=== PATIENT | male | born 1965 | race Caucasian/White ===

== ENCOUNTER 2019-02-18 06:28 | Day surgery (SDC) | payer OTHER ==
[2019-02-17 13:18] LABS: Protime INR 1.63
--- NOTE | 2019-02-17 13:20 | RAD REPORT ---
EXAM DESCRIPTION: RAD - Chest Pa And Lat (2 Views) - 02/17/2019 1:13 pm CLINICAL HISTORY: cardioversion Chest pain. COMPARISON: RAD CHEST PA AND LAT (2 VIEWS) dated 11/05/2013 FINDINGS: Linear subsegmental atelectasis is present in the left mid lung. Blunting of the costophre aram angle on the left is seen probably pleural thickening. Pulmonary arterial tree appears prominent in size suggesting underlying pulmonary arterial hypertension. The heart is mildly enlarged. Sternoto my wires present. A stent projects over the upper mediastinum on the left. No displaced fractures. IMPRESSION: Linear atelectasis left mid lung. Enlarged pulmonary arterial tree may indicate pulmonary arterial hypertension. The heart is mildly enlarged.
[2019-02-17 13:23] LABS: Potassium 3.8 mmol/L (3.5-5.1)
[2019-02-17 13:42] LABS: Absolute Lymphocytes (CBC) 1.5 K/uL (0.7-4.9); Basophils % 0.7 % (0-1.3); Hematocrit 40.3 % (39.6-49.0); Lymphocytes % 15.2 % (15.3-44.8); MPV 8.5 fL (7.6-11.3); RBC Red Blood Cell Count 4.38 M/uL (4.33-5.43)
[2019-02-18] MEDS ORDERED: NA CHLORIDE 0.9% 500 ML ONE (06:38)
[2019-02-18] MEDS ORDERED: ATROPINE SULF 1 MG/10 ML SYR IV ONE (07:17)
[2019-02-18] MEDS ORDERED: FLUMAZENIL 0.1 MG/ML (5 mL VIAL) IV ONE (07:17)
[2019-02-18] MEDS ORDERED: MIDAZOLAM HCL 5 MG/5 ML INJ ONE (07:17)
[2019-02-18 14:08] VITALS: BP 92/60; TEMP 98; O2SAT 98
--- NOTE | 2019-02-18 14:12 | EKG ---
Test Date: 2019-02-18 Test Time: 09:12:44 Enrollment Counselor: STEVEN MEASUREMENT RESULTS: Intervals: Rate: 89 MT: 144 QRSD: 108 QT: 408 QTc: 496 Eldena: P: 46 MT: 144 QRS: 46 T: 183 INTERPRETIVE STATEMENTS: Sinus rhythm with premature atrial complexes with aberrant conduction Low voltage QRS Incomplete left bundle branch block Nonspecific T wave abnormality Prolonged QT Abnormal ECG No previous ECG available for comparison Electronically Signed On 02-18-19 14:11:39 SIMULATION SOFTWARE ENGINEER by José Snyder
--- NOTE | 2019-02-18 20:53 | OP ---
Date of Procedure: 02/18/2019 Surgeon: José Snyder MD Procedure: Direct current cardioversion. Indication: Atrial fibrillation. History Of Present Illness: Mr. Desouza is a 53, has had a history of coronary artery disease in th e past. Atrial fibrillation probably about 3-4 weeks. Has been on Eliquis 5 mg b.i.d., Plavix as we ll as metoprolol 50 b.i.d., remained in atrial fibrillation, rapid ventricular response, short of niharika ath on exertion, although he has not been on Eliquis for [address] Valle has seen him in the off ice and recommended cardioversion mostly because of his severe symptoms. He was brought into the cat [facility] lab today as an outpatient, prepped and draped in the routine sterile fashion. He was given a tota l of 14 mg of Versed for sedation. The case was discussed with the family prior to the cardioversion . He understands the risk and the benefits of the procedure and they agreed to proceed. He received 2 shocks, 1 with 100 and the second one with 200 joules and he converted to sinus rhythm. There wer e no complications or blood loss. He was neurologically nonfocal after the procedure. Total conscio us sedation was 30 minutes. Final Diagnosis: Atrial fibrillation, status post successful cardioversion to sinus rhythm. We will place the patient on Multaq 400 mg b.i.d. instead of the metoprolol. He can go home once he wake up . I would like to see him in the office in the next week or 2. GIOVANI/STACY Voice ID: [id number] Report ID: [id number]
== END 2019-02-18 10:59 | disposition home health service (06) ==
LOC: CCL 06:28
DX: I48.91 Unspecified atrial fibrillation (principal); I10 Essential (primary) hypertension; Q25.1 Coarctation of aorta; F17.220 Nicotine dependence, chewing tobacco, uncomplicated; Z79.02 Long term (current) use of antithrombotics/antiplatelets; Z82.3 Family history of stroke
CPT/HCPCS: 93005; 85025; 80048; 36415; 85610; 85730; 71046; 92960; J2250; J7040

== ENCOUNTER 2019-06-23 15:08 | Emergency (ER) | payer OTHER ==
--- NOTE | 2019-06-23 15:53 | RAD REPORT ---
EXAM DESCRIPTION: CT - Head Brain Wo Cont - 06/23/2019 3:48 pm CLINICAL HISTORY: TRAUMA Trauma, head injury COMPARISON: Facial Bones W/ Mpr dated 06/23/2019 TECHNIQUE: All CT scans are performed using dose optimization technique as appropriate and may inclu de automated exposure control or mA/KV adjustment according to patient size. FINDINGS: No intracranial hemorrhage, hydrocephalus or extra-axial fluid collection.No areas of brai n edema or evidence of midline shift. The paranasal sinuses and mastoids are clear. The calvarium is intact. IMPRESSION: No acute intracranial abnormality.
[2019-06-23] MEDS ORDERED: HYDROCODONE/APAP 10/325 TAB ONE (15:59)
--- NOTE | 2019-06-23 16:00 | RAD REPORT ---
EXAM DESCRIPTION: CT - CTFB CLINICAL HISTORY: TRAUMA Trauma, facial injury and pain COMPARISON: No comparisons TECHNIQUE: Axial 2 mm thick images of the face were obtained with sagittal and coronal reconstructio n images. All CT scans are performed using dose optimization technique as appropriate and may include automated exposure control or mA/KV adjustment according to patient size. FINDINGS: No acute facial bone fracture is seen.The mandible is intact. The globes and orbital contents are grossly unremarkable.Mild mucosal thickening of the maxillary ant ra. IMPRESSION: Negative for facial bone fracture.
--- NOTE | 2019-06-23 16:01 | RAD REPORT ---
EXAM DESCRIPTION: RAD - Wrist Left 3 View - 06/23/2019 3:49 pm CLINICAL HISTORY: Pain;Swelling Pain COMPARISON: No comparisons FINDINGS: Impacted, intra-articular fracture of the distal radius is seen. Ulnar styloid avulsion fr acture also present. Mild soft tissue swelling is seen about the wrist.
--- NOTE | 2019-06-23 16:01 | RAD REPORT ---
EXAM DESCRIPTION: RAD - Wrist Right 3 View - 06/23/2019 3:49 pm CLINICAL HISTORY: Pain;Swelling Pain COMPARISON: No comparisons FINDINGS: Impacted intra-articular fracture of the distal radius is seen. Small ulnar styloid avuls ion is present. Moderate soft tissue swelling is evident.
--- NOTE | 2019-06-23 16:22 | ER ---
Nurse's Notes [facility] Name: Jose Desouza Age: 53 yrs Sex: Male : 1965 Arrival Date: 06/23/2019 Time: 15:09 Bed 16 Private MD: Diagnosis: Fall on same level from slipping, tripping and stumbling;Displaced fracture of right distal radius and avulsion fracture of ulnar styloid;Displaced fracture of left distal radius and avulsion fracture of ulnar styloid;Superficial injury of head;Abrasion of right cheek;contusion of right cheek Presentation: 06/22 15:13 Chief complaint: Patient states[place] lost balance and twisted ca1 and fell down, rolled down a [place]adia slope. Denies LOC. Lac on R cheek and swelling and pain on both wrist. Pt on Eliquis. Coronavirus screen: Patient denies fever greater than 100.4F, cough, shortness of breath, or difficulty breathing. Proceed with normal triage process. Ebola Screen: Patient negative for fever greater than or equal to 101.5 degrees Fahrenheit, and additional compatible Ebola Virus Disease symptoms Patient denies exposure to infectious person. Patient denies travel to an Ebola-affected area in the 21 days before illness onset. No symptoms or risks identified at this time. Initial Sepsis Screen: Does the patient meet any 2 criteria? No. Patient's initial sepsis screen is negative. Does the patient have a suspected source of infection? No. Patient's initial sepsis screen is negative. Risk Assessment: Do you want to hurt yourself or someone else? Patient reports no desire to harm self or others. Onset of symptoms was June 23, 2019. 15:13 Method Of Arrival: Ambulatory ca1 15:13 Acuity: CARLINE 3 ca1 Triage Assessment: 15:15 General: Appears in no apparent distress. uncomfortable, Behavior is cooperative, bp appropriate for age, anxious. Pain: Complains of pain in right wrist and left wrist. EENT: No deficits noted. Neuro: No deficits noted. Cardiovascular: No deficits noted. Respiratory: No deficits noted. GI: No signs and/or symptoms were reported involving the gastrointestinal system. : No signs and/or symptoms were reported regarding the genitourinary system. Derm: No deficits noted. Musculoskeletal: No deficits noted. Injury Description: Deformity sustained to right wrist and left wrist. Historical: - Allergies: 15:19 No Known Allergies; ca1 - PMHx: 15:19 Hypertension; ca1 - PSHx: 15:19 stents; ca1 - Immunization history:: Adult Immunizations up to date, Last tetanus immunization: < 5 years ago Flu vaccine is not up to date. - Social history:: Smoking status: Patient denies any tobacco usage or history of. Screenin:58 Abuse screen: Denies threats or abuse. Denies injuries from another. Nutritional bp screening: No deficits noted. Tuberculosis screening: No symptoms or risk factors identified. Fall Risk None identified. Assessment: 15:15 General: SEE TRIAGE NOTE. bp 16:55 Reassessment: PT D/C HOME AMBULATORY WITH FRIEND, DX WITH BILATERAL WRIST FX. bp Vital Signs: 15:13 BP 141 / 63; Pulse 68; Resp 17 S; Temp 98.6(TE); Pulse Ox 98% on R/A; Weight 117.93 kg ca1 (R); Height 5 ft. 7 in. (170.18 cm) (R); Pain 8/10; 16:19 BP 152 / 82; Pulse 71; Resp 16; Temp 98.5; Pulse Ox 98% ; bp 16:54 BP 147 / 89; Pulse 75; Resp 16; Temp 98.5; Pulse Ox 98% ; bp 15:13 Body Mass Index 40.72 (117.93 kg, 170.18 cm) ca1 ED Course: 15:09 Patient arrived in ED. ag5 15:17 Triage completed. ca1 15:19 Kylah Tariq [facility]-C [facility]. kb 15:19 Carlos Manuel Choi MD is Attending Physician. kb 15:19 Arm band placed on right wrist. ca1 15:50 CT Head Brain wo Cont In Process Unspecified. EDMS 15:50 CT Facial Bones W/O Con In Process Unspecified. EDMS 15:50 Wrist Right 3 View XRAY In Process Unspecified. EDMS 15:50 Wrist Left (3 View) XRAY In Process Unspecified. EDMS 15:56 Mao Rodriguez, DEMIAN is Primary Nurse. bp 15:58 Patient has correct armband on for positive identification. Bed in low position. Call bp light in reach. Side rails up X2. 16:18 Wound care: to abrasion, located on face was cleaned with Hibiclens, dressed with bp Neosporin, Patient tolerated well. 16:56 No provider procedures requiring assistance completed. Patient did not have IV access bp during this emergency room visit. Administered Medications: 15:58 Drug: Carnation 10 mg-325 mg 1 tabs Route: PO; iw 16:20 Follow up: Response: Pain is decreased bp Outcome: 16:21 Discharge ordered by MD. mckeon 16:55 Discharged to home ambulatory, with family. bp 16:55 Condition: stable 16:55 Discharge instructions given to patient, Instructed on discharge instructions, follow up and referral plans. medication usage, Demonstrated understanding of instructions, follow-up care, medications, splint care, Prescriptions given X 2. 16:56 Patient left the ED. bp Signatures: Dispatcher [employer] EDKylah Campuzano, REAL ESTATE DEVELOPMENT MANAGER-C REAL ESTATE DEVELOPMENT MANAGER-Brittani Morfin, RN DEMIAN iw Mao Rodriguez RN RN Hansa Ledesma RN RN ca1 Nessa, Christen ag5 Corrections: (The following items were deleted from the chart) 15:18 15:13 Acuity: CARLINE 4 ca1 ca1 15:20 15:13 Chief complaint: Patient states: [place], lost balance and ca1 twisted and fell down, rolled down a [place] slope. Denies LOC. Lac on R cheek and swelling and pain on both wrist. ca1
--- NOTE | 2019-06-23 16:23 | EDPHYS ---
Physician Documentation [facility] Name: Jose Desouza Age: 53 yrs Sex: Male : 1965 Arrival Date: 06/23/2019 Time: 15:09 Bed 16 Private MD: ED Physician Carlos Manuel Choi HPI: 06/22 15:40 This 53 yrs old Male presents to ER via Ambulatory with complaints of Fall kb Injury, Wrist Injury, Facial Injury. 15:40 Details of fall: The patient fell from an upright position, while walking. Onset: The kb symptoms/episode began/occurred just prior to arrival. Associated injuries: The patient sustained injury to the head, abrasion, laceration, 2 cm(s), of the right cheek, swelling, right wrist and left wrist, decreased range of motion, painful injury, swelling. Severity of symptoms: At their worst the symptoms were moderate, in the emergency department the symptoms are unchanged. The patient has not experienced similar symptoms in the past. The patient has not recently seen a physician. Pt reports [place], started walking up an incline that was covered in rocks. slipped and fell. Reports pain, swelling and decreased ROM of bilateral wrists and laceration/abrasion to right cheek. Denies LOC, neck pain, headache. States "I watched a abdirizak pull in a fish while I was laying there." Denies any other pain other that stated above. . Historical: - Allergies: 15:19 No Known Allergies; ca1 - PMHx: 15:19 Hypertension; ca1 - PSHx: 15:19 stents; ca1 - Immunization history:: Adult Immunizations up to date, Last tetanus immunization: < 5 years ago Flu vaccine is not up to date. - Social history:: Smoking status: Patient denies any tobacco usage or history of. ROS: 15:38 Constitutional: Negative for fever, chills, and weight loss, ENT: Negative for injury, kb pain, and discharge, Neck: Negative for injury, pain, and swelling, Cardiovascular: Negative for chest pain, palpitations, and edema, Respiratory: Negative for shortness of breath, cough, wheezing, and pleuritic chest pain, Abdomen/GI: Negative for abdominal pain, nausea, vomiting, diarrhea, and constipation, Back: Negative for injury and pain, Neuro: Negative for headache, weakness, numbness, tingling, and seizure. 15:38 MS/extremity: Positive for injury or acute deformity, decreased range of motion, pain, swelling, tenderness, of the right wrist and left wrist. 15:38 Skin: Positive for abrasion(s), ecchymosis, laceration(s), swelling, of the right cheek. Exam: 15:38 Constitutional: This is a well developed, well nourished patient who is awake, alert, kb and in no acute distress. Eyes: Pupils equal round and reactive to light, extra-ocular motions intact. Lids and lashes normal. Conjunctiva and sclera are non-icteric and not injected. Cornea within normal limits. Periorbital areas with no swelling, redness, or edema. ENT: Nares patent. No nasal discharge, no septal abnormalities noted. Tympanic membranes are normal and external auditory canals are clear. Oropharynx with no redness, swelling, or masses, exudates, or evidence of obstruction, uvula midline. Mucous membranes moist. Neck: Trachea midline, no thyromegaly or masses palpated, and no cervical lymphadenopathy. Supple, full range of motion without nuchal rigidity, or vertebral point tenderness. No Meningismus. Chest/axilla: Normal chest wall appearance and motion. Nontender with no deformity. No lesions are appreciated. Cardiovascular: Regular rate and rhythm with a normal S1 and S2. No gallops, murmurs, or rubs. Normal PMI, no JVD. No pulse deficits. Respiratory: Lungs have equal breath sounds bilaterally, clear to auscultation and percussion. No rales, rhonchi or wheezes noted. No increased work of breathing, no retractions or nasal flaring. Abdomen/GI: Soft, non-tender, with normal bowel sounds. No distension or tympany. No guarding or rebound. No evidence of tenderness throughout. Back: No spinal tenderness. No costovertebral tenderness. Full range of motion. Neuro: Awake and alert, GCS 15, oriented to person, place, time, and situation. Cranial nerves II-XII grossly intact. Motor strength 5/5 in all extremities. Sensory grossly intact. Cerebellar exam normal. Normal gait. 15:38 Head/face: Noted is no obvious of injury or deformity except abrasion(s), that are moderate, of the right cheek, ecchymosis, that is mild, of the right cheek, a laceration(s), that is superficial, 2 cm(s), of the right cheek, swelling. 15:38 Musculoskeletal/extremity: Extremities: grossly normal except: noted in the right wrist and left wrist: decreased ROM, pain, swelling, tenderness, ROM: limited active range of motion, limited active range of motion due to pain, in the right wrist and left wrist, Circulation is intact in all extremities. Sensation intact. Vital Signs: 15:13 BP 141 / 63; Pulse 68; Resp 17 S; Temp 98.6(TE); Pulse Ox 98% on R/A; Weight 117.93 kg ca1 (R); Height 5 ft. 7 in. (170.18 cm) (R); Pain 8/10; 16:19 BP 152 / 82; Pulse 71; Resp 16; Temp 98.5; Pulse Ox 98% ; bp 16:54 BP 147 / 89; Pulse 75; Resp 16; Temp 98.5; Pulse Ox 98% ; bp 15:13 Body Mass Index 40.72 (117.93 kg, 170.18 cm) ca1 Procedures: 16:19 Splinting: Splint applied to left forearm using Orthoglass splint, applied by tech. kb Examined by me, post splint application: neurovascular intact, 2+ distal pulses palpable, brisk capillary refill noted, Patient tolerated well. 16:20 Splinting: Splint applied to right forearm using Orthoglass splint, applied by tech. kb Examined by me, post splint application: neurovascular intact, 2+ distal pulses palpable, brisk capillary refill noted, Patient tolerated well. MDM: 15:19 Patient medically screened. kb 15:38 Data reviewed: vital signs, nurses notes. Data interpreted: Pulse oximetry: on room air kb is 98 %. Interpretation: normal. 16:13 Counseling: I had a detailed discussion with the patient and/or guardian regarding: the kb historical points, exam findings, and any diagnostic results supporting the discharge/admit diagnosis, radiology results, the need for outpatient follow up, a orthopedic surgeon, to return to the emergency department if symptoms worsen or persist or if there are any questions or concerns that arise at home. 16:32 ED course: DIAGRAMMER AND SEAMER reviewed. kb 06/22 15:27 Order name: CT Head Brain wo Cont; Complete Time: 16:25 kb 06/22 15:27 Order name: CT Facial Bones W/O Con; Complete Time: 16:25 kb 06/22 15:27 Order name: Wrist Right 3 View XRAY; Complete Time: 16:25 kb 06/22 15:27 Order name: Wrist Left (3 View) XRAY; Complete Time: 16:25 kb 06/22 15:27 Order name: Ice pack; Complete Time: 16:02 kb 06/22 15:28 Order name: Wound Care: clean with hibiclense; Complete Time: 16:18 kb 06/22 15:48 Order name: Sugar Tong Forearm Splint: right; Complete Time: 16:18 kb 06/22 15:48 Order name: Sugar Tong Forearm Splint: right; Complete Time: 16:20 kb Administered Medications: 15:58 Drug: [place] 10 mg-325 mg 1 tabs Route: PO; iw 16:20 Follow up: Response: Pain is decreased bp Disposition: 16:57 Co-signature as Attending Physician, Carlos Manuel Choi MD. rn Disposition: 06/23/19 16:21 Discharged to Home. Impression: Fall on same level from slipping, tripping and stumbling, Displaced fracture of right distal radius and avulsion fracture of ulnar styloid, Displaced fracture of left distal radius and avulsion fracture of ulnar styloid, Superficial injury of head, Abrasion of right cheek, contusion of right cheek. - Condition is Stable. - Discharge Instructions: Forearm Fracture, Odip-nf-Waff, Contusion, Ovgz-dy-[id number], Abrasion, Ogwt-il-Ovqp, Cast or Splint Care, Yita-mx-Zmnf, Head Injury, Adult, [id number]-zn-[id number]. - Prescriptions for Tylenol- Codeine #3 300-30 mg Oral Tablet - take 2 tablets by ORAL route every 6 hours As needed; 20 tablet. Ibuprofen 800 mg Oral Tablet - take 1 tablet by ORAL route every 8 hours As needed take with food; 30 tablet. - Medication Reconciliation Form, Thank You Letter, Antibiotic Education, Prescription Opioid Use form. - Follow up: Emergency Department; When: As needed; Reason: Worsening of condition. Follow up: Private Physician; When: 2 - 3 days; Reason: Recheck today's complaints, Continuance of care, Re-evaluation by your physician. Signatures: Dispatcher [employer] Kylah Smart FNP-C COMPUTER NUMERICAL CONTROL OPERATOR-Ckb Brittani Jc RN RN iw Nieto, Roman, MD MD rn Peltier, Brian, RN RN bp Hansa Snyder RN RN [facility] Corrections: (The following items were deleted from the chart) 16:23 16:21 06/23/2019 16:21 Discharged to Home. Impression: Fall on same level from kb slipping, tripping and stumbling; Displaced fracture of right distal radius; Displaced fracture of left distal radius. Condition is Stable. Forms are Medication Reconciliation Form, Thank You Letter, Antibiotic Education, Prescription Opioid Use. Follow up: Emergency Department; When: As needed; Reason: Worsening of condition. Follow up: Private Physician; When: 2 - 3 days; Reason: Recheck today's complaints, Continuance of care, Re-evaluation by your physician. 16:25 16:23 06/23/2019 16:21 Discharged to Home. Impression: Fall on same level from kb slipping, tripping and stumbling; Displaced fracture of right distal radius and avulsion fracture of ulnar styloid; Displaced fracture of left distal radius and avulsion fracture of ulnar styloid. Condition is Stable. Forms are Medication Reconciliation Form, Thank You Letter, Antibiotic Education, Prescription Opioid Use. Follow up: Emergency Department; When: As needed; Reason: Worsening of condition. Follow up: Private Physician; When: 2 - 3 days; Reason: Recheck today's complaints, Continuance of care, Re-evaluation by your physician. 16:56 16:25 06/23/2019 16:21 Discharged to Home. Impression: Fall on same level from slipping, tripping and stumbling; Displaced fracture of right distal radius and avulsion fracture of ulnar styloid; Displaced fracture of left distal radius and avulsion fracture of ulnar styloid; Superficial injury of head; Abrasion of right cheek; contusion of right cheek. Condition is Stable. Discharge Instructions: Forearm Fracture, Muhc-oh-Kxam, Cast or Splint Care, Gydg-vw-Xxle. Prescriptions for Tylenol-Codeine #3 300-30 mg Oral Tablet - take 2 tablets by ORAL route every 6 hours As needed; 20 tablet, Ibuprofen 800 mg Oral Tablet - take 1 tablet by ORAL route every 8 hours As needed take with food; 30 tablet. and Forms are Medication Reconciliation Form, Thank You Letter, Antibiotic Education, Prescription Opioid Use. Follow up: Emergency Department; When: As needed; Reason: Worsening of condition. Follow up: Private Physician; When: 2 - 3 days; Reason: Recheck today's complaints, Continuance of care, Re-evaluation by your physician. kb
[2019-06-23 17:02] VITALS: O2SAT 98
[2019-06-23 17:03] VITALS: TEMP 98.5
[2019-06-23 17:05] VITALS: BP 147/89
== END 2019-06-23 16:56 | disposition home or self-care (01) ==
LOC: ER 15:08
PROC: 2W3DX1Z Immobilization of Left Lower Arm using Splint (ICD-10-PCS; principal; 2019-06-23)
PROC: 2W3CX1Z Immobilization of Right Lower Arm using Splint (ICD-10-PCS; 2019-06-23)
DX: S52.501A Unspecified fracture of the lower end of right radius, initial encounter for closed fracture (principal); S52.611A Displaced fracture of right ulna styloid process, initial encounter for closed fracture; S52.502A Unspecified fracture of the lower end of left radius, initial encounter for closed fracture; S52.612A Displaced fracture of left ulna styloid process, initial encounter for closed fracture; W01.198A Fall on same level from slipping, tripping and stumbling with subsequent striking against other object, initial encounter; Y93.89 Activity, other specified; Y92.89 Other specified places as the place of occurrence of the external cause; I10 Essential (primary) hypertension
CPT/HCPCS: 70450; 70486; 76377; 99284